=== PATIENT | female | born 1990 | race Caucasian/White ===

== ENCOUNTER 2023-12-06 22:45 | Emergency (ER) | payer OTHER, SELFPAY ==
[2023-12-06 22:46] VITALS: BP 140/84
[2023-12-06 23:19] LABS: HCG, Serum Qualitative Screen Negative; Lactic Acid 0.7 mmol/L (0.7-2.0)
[2023-12-06 23:25] LABS: ALT (SGPT) 24 U/L (0-35); AST (SGOT) 34 U/L (14-36); Albumin 4.2 g/dl (3.5-5.0); Alkaline Phosphatase 44 U/L (38-126); Blood Urea Nitrogen 14 mg/dl (7-17); Carbon Dioxide 23 mmol/L (22-30); Chloride 104 mmol/L (98-107); Glucose 115 mg/dl (70-99); Lipase 48 U/L (23-300); Potassium 4.5 mmol/L (3.5-5.1); Sodium 136 mmol/L (135-145); Total Bilirubin 0.5 mg/dl (0.2-1.3); eGFR > 60.00
[2023-12-07 02:28] VITALS: BMI 33.3
[2023-12-07 02:32] VITALS: BP 94/81
[2023-12-07 02:57] LABS: Urine Albumin Negative (Neg - Trace); Urine Bilirubin Negative (Negative); Urine Character Clear (Clear); Urine Color Yellow; Urine Glucose Negative (Negative); Urine Ketone Negative (Negative); Urine Leukocyte Trace (Negative); Urine Nitrite Negative (Negative); Urine Occult Blood Negative (Negative); Urine Urobilinogen Negative (Neg - 1+)
[2023-12-07 03:00] VITALS: BP 116/71
[2023-12-07 03:02] LABS: COVID-19 Antigen Positive (Negative)
[2023-12-07 03:03] LABS: % Basophils 0.3 % (0-2); % Eosinophils 0.7 % (0-6); % Immature Granulocytes 0.3 % (0-0.5); % Lymphocytes 14.3 % (20.5-51.1); % Monocytes 10.3 % (1.7-9.3); % Neutrophils 74.1 % (42.2-75.2); Absolute Eosinophils 0.1 10^3/uL (0-0.7); Absolute Lymphocytes 1.1 10^3/uL (1.2-3.4); Absolute Monocytes 0.8 10^3/uL (0.1-0.6); Absolute Neutrophils 5.6 10^3/uL (1.4-6.5); Hematocrit 33.4 % (37.0-47.0); Hemoglobin 11.7 g/dL (12.0-16.0); Mean Corpuscular Hgb 29.3 pg (27.0-31.0); Mean Corpuscular Volume 83.5 fL (81.0-99.0); Mean Platelet Volume 9.6 fL (7.4-10.4); Nucleated Red Blood Cells % 0 %; Platelet Count 214 10^3/uL (130-400); Red Cell Dist. Width 12.9 % (11.5-14.5); White Blood Cell Count 7.5 10^3/uL (4.8-10.8)
--- NOTE | 2023-12-07 03:14 | ED.GENMED ---
History of Present Illness
<Terri (Leah SAMM Matias - Last Filed: 12/07/23 04:58>
General
Chief Complaint: Abdominal Pain
Source: patient and family
Exam Limitations: none
Time Seen by Provider: 12/07/23 02:35
Nursing documentation reviewed up to this point in time: agreed with
History of Present Illness
History of Present Illness:
Pt is a 33 yo female with PMHx of long COVID and gallstones who presents to the ED with concerns over new onset fever, BHATT, and worsening RUQ pain x 1d. She presents complaining of RUQ pain 'over my gallbladder', endorses nausea, no vomiting. Last
night (Monday 12/04) she started with a fever, Tmax 101F, no relief with cold pack. Tonight (12/05) she took 4 baby aspirin and 2 benadryl at 1800 with no relief of symptoms. She states she now feels flushed, sweaty, and full body and joint aches. She
is concerned she has long COVID. Pt had COVID December 2022 with sx lasting 1 month. Reports daily exhaustion. Denies difficulty swallowing, difficulty breathing, shortness of breath, chest pain, changes to bowel or bladder habits. She does note
that is frequently constipated, but last BM yesterday was soft and normal.
Pt states that on an abdominal U/S done 11/17/23, there were gallstones noted (2.4 x 2.0 x 3.0 cm) and CBD measuring 5.0 mm.
Pt states that since April 2023 she has had a multitude of complaints: body aches, intermittent extremity numbness, dizziness, 'heart pain', weight loss, neck and head pressure, 'full body pounding', myalgias, periodic 'raised red, not itchy' rash
on her extremities. She has been seen by her PCP multiple times since and told she has allergies. Blood work workup from 11/17/23 shows no abnormalities (including TSH, free T4, CRP, CBC, CMP).
Recently had 3 dental abscesses treated by the dentist about 1.5 weeks ago, was placed on 1 week of amoxicillin on 11/23/23. 'I felt better with the antibiotics'.
Past History
<SAMM Knox (Lenka) - Last Filed: 12/07/23 04:58>
Past History
ED Past Medical History: Other (gallstones)
Phy Exam
<SAMM Knox (Lenka) - Last Filed: 12/07/23 04:58>
General Physical Exam
General Presentation: mild distress (pt laying in bed, flushed, clammy, grimacing )
General age: appears stated age
General Skin: feels hot and flushed
General Habitus: normal
General Mental: alert
General Hydration: appears well hydrated
ENT Exam
ENT Exam: EOMI, TM's normal, pharynx normal, normocephalic and swallowing well
Eye Exam
Eye Exam: PERRL, EOMI and conjunctiva normal
Cardiovascular Exam
Cardiovascular Exam: regular rate/rhythm, no edema and normal peripheral pulses
Heart Sounds: normal
Pulmonary Exam
Pulmonary Exam: lungs clear, no respiratory distress, no rales, no rhonchi, no wheezing and no cough
Gastrointestinal Exam
Gastrointestinal Exam: normal bowel sounds, soft and non distended
Palpation: left upper quadrant: No tenderness, left lower quadrant: No tenderness, right upper quadrant: Minimal tenderness (minimal tenderness to R side with palpation, negative Pike sign) and right lower quadrant: Minimal tenderness (minimal
tenderness to R side with palpation, negative Pike sign)
Neurological Exam
Neurological Exam: alert, oriented x3 and speech normal
Musculoskeletal Exam
Musculoskeletal Exam: neck pain (circumferential)
Course
<SAMM Knox (Lenka) - Last Filed: 12/07/23 04:58>
Orders/Labs/Results
Orders:
Orders
12/06/23 22:51
Complete Blood Count/With Diff Urgent
Test Result ONCE
12/06/23 23:01
Comprehensive Metabolic Panel Urgent
HCG, Serum Qualitative Screen Urgent
Lactate Level [Lactic Acid] Urgent
Lipase Urgent
12/07/23 02:47
COVID-19 Antigen Urgent
Source: Nasal Swab
Urinalysis Reflex To Culture Urgent
Date Specimen was Collected: 12/07/23
Time Specimen was Collected: 02:24
Urine Microscopic Reflex Cult Urgent
12/07/23 03:16
Acetaminophen [Tylenol] 650 mg PO NOW STA
12/07/23 03:23
0.9% Sodium Chloride 1000 ml [Nss] 1,000 ml IV BOLUS
12/07/23 03:37
US Abdomen Complete/Upper Urgent
Comment:
Reason For Exam: worsening RUQ pain, hx gallstones
12/07/23 05:26
Dexamethasone Pf [Decadron] 10 mg PO NOW STA
Abnormal Lab Results
12/06/23 12/07/23
23:01 02:47
RBC 4.00 L 10^6/uL
(4.20-5.40)
Hgb 11.7 L g/dL
(12.0-16.0)
Hct 33.4 L %
(37.0-47.0)
Absolute Lymphs (auto) 1.1 L 10^3/uL
(1.2-3.4)
Absolute Monos (auto) 0.8 H 10^3/uL
(0.1-0.6)
Lymphocytes % 14.3 L %
(20.5-51.1)
Monocytes % 10.3 H %
(1.7-9.3)
Glucose 115 H mg/dl
(70-99)
Leukocyte Esterase Rfl Trace A
(Negative)
Urine Bacteria (Reflex) Few A
(Negative)
SARS-CoV-2 Antigen Positive A
(Negative)
12/07/23 02:47
12/06/23 23:01
Vital Signs
Initial and Last Documented VS:
Initial Vital Signs
Temp Pulse Resp BP Pulse Ox
100.2 F 114 24 140/84 96
12/06/23 22:46 12/06/23 22:46 12/06/23 22:46 12/06/23 22:46 12/06/23 22:46
Last Documented Vital Signs
Temp Pulse Resp BP Pulse Ox
99.6 F 97 18 116/71 97
12/07/23 02:26 12/07/23 02:32 12/07/23 02:32 12/07/23 03:00 12/07/23 04:20
<Jay Noguera, DO - Last Filed: 12/07/23 05:33>
Orders/Labs/Results
Orders:
Orders
12/06/23 22:51
Complete Blood Count/With Diff Urgent
Test Result ONCE
12/06/23 23:01
Comprehensive Metabolic Panel Urgent
HCG, Serum Qualitative Screen Urgent
Lactate Level [Lactic Acid] Urgent
Lipase Urgent
12/07/23 02:47
COVID-19 Antigen Urgent
Source: Nasal Swab
Urinalysis Reflex To Culture Urgent
Date Specimen was Collected: 12/07/23
Time Specimen was Collected: 02:24
Urine Microscopic Reflex Cult Urgent
12/07/23 03:16
Acetaminophen [Tylenol] 650 mg PO NOW STA
12/07/23 03:23
0.9% Sodium Chloride 1000 ml [Nss] 1,000 ml IV BOLUS
12/07/23 03:37
US Abdomen Complete/Upper Urgent
Comment:
Reason For Exam: worsening RUQ pain, hx gallstones
12/07/23 05:26
Dexamethasone Pf [Decadron] 10 mg PO NOW STA
Abnormal Lab Results
12/06/23 12/07/23
23:01 02:47
RBC 4.00 L 10^6/uL
(4.20-5.40)
Hgb 11.7 L g/dL
(12.0-16.0)
Hct 33.4 L %
(37.0-47.0)
Absolute Lymphs (auto) 1.1 L 10^3/uL
(1.2-3.4)
Absolute Monos (auto) 0.8 H 10^3/uL
(0.1-0.6)
Lymphocytes % 14.3 L %
(20.5-51.1)
Monocytes % 10.3 H %
(1.7-9.3)
Glucose 115 H mg/dl
(70-99)
Leukocyte Esterase Rfl Trace A
(Negative)
Urine Bacteria (Reflex) Few A
(Negative)
SARS-CoV-2 Antigen Positive A
(Negative)
12/07/23 02:47
12/06/23 23:01
Vital Signs
Initial and Last Documented VS:
Initial Vital Signs
Temp Pulse Resp BP Pulse Ox
100.2 F 114 24 140/84 96
12/06/23 22:46 12/06/23 22:46 12/06/23 22:46 12/06/23 22:46 12/06/23 22:46
Last Documented Vital Signs
Temp Pulse Resp BP Pulse Ox
99.6 F 97 18 116/71 97
12/07/23 02:26 12/07/23 02:32 12/07/23 02:32 12/07/23 03:00 12/07/23 04:20
<SAMM Knox (Lenka) - Last Filed: 12/07/23 04:58>
MDM/Problems Addressed
Differential Diagnosis Includes:
DDx: COVID vs viral infection vs
Will test for COVID, check CBC, CMP, UA.
<SAMM Knox (Lenka) - Last Filed: 12/07/23 04:58>
*Critical Care Note
Total Time (30-74mins, 75-104mins- exclusive of procedures): Not Applicable
<Terri Hackett) SAMM Matias - Last Filed: 12/07/23 04:58>
Update Note
Update Note:
COVID POSITIVE
US abdomen, RUQ
IMPRESSION:
- normal hepatic parenchyma, without focal liver mass where seen. Mild hepatomegaly. Smooth capsular contours. Hepatopetal portal venous flow.
- the gallbladder is contracted around a single shadowing gallstone. Accounting for degree of contraction, no evidence of mural inflammation or edema. While evaluation for sonographic Chacon's sign is confounded by patient's inability to take deep
breaths, acute cholecystitis is highly unlikely in the setting of contracted gallbladder
- no significant intrahepatic or extrahepatic biliary ductal dilation. CBD is poorly resolved but measures approximately 5mm
- pancreas obscured by bowel gas
- normal kidneys, measuring 9.5cm on the right and 10.3cm on the left, without hydronephrosis
- borderline splenomegaly, 13.4 cm
ED Attending Note
<SAMM Knox (Lenka) - Last Filed: 12/07/23 04:58>
-
Portions of this chart may have been created with voice recognition software.� Occasional wrong word or��sound alike� substitutions may have occurred due to the inherent limitations of voice recognition software.
<Jay Noguera DO - Last Filed: 12/07/23 05:33>
ED Attending Note
Patient seen and examined by attending physician: Yes
I performed the substantive portion of visit, reviewed & personally made and approve the management plan that is documented in note by myself or KP.: Yes
ED Attending Note:
33-year-old female with fever that is been going on since her first episode of COVID in April. She has had a headache and bodyaches. She has known gallstones and had some nausea. She came to the ER tonight with new onset fever and right upper
quadrant pain that was worsening. Patient was seen in conjunction with the PA student. I have reviewed and agree with the history and treatment plan presented. On my independent physical exam, patient is awake, alert, and oriented x3, minimal
acute distress after fluids. Heart is regular rate rhythm. Lungs are clear to auscultation bilaterally no wheezes rales or rhonchi. Abdomen is soft and nontender. Negative McBurney's point tenderness. Negative Chacon sign.
Patient requesting 'referral 'to the [facility] COVID clinic. I did make a recommendation that she follow-up there but as I explained to her referrals are not submitted typically can do. She did request steroids which I gave
her. She requested a note for work.
Discharge Plan
Departure
Disposition: Home (Routine Discharge)
Date of Disposition: 12/07/23
Time of Disposition: 05:31
Patient with high blood pressure during this ER visit?: No
Condition: Good
Discharge Problem:
Abdominal pain, Biliary colic, COVID-19
Instructions: Gallstones (DC), COVID-19 ED, Abdominal Pain
Prescriptions:
New
ondansetron 4 mg tablet,disintegrating
4 mg PO DAILY PRN (Reason: nausea and vomiting) Qty: 10 0RF
No Action
clonazepam [Klonopin] 1 mg Tablet
1 mg PO QID
trazodone 100 mg Tablet
100 mg PO HS
methadone 5 mg/5 mL Solution
64 mg PO DAILY
tizanidine
PO HS
Referrals:
Herbie Frey MD [Active] - As needed
Forms: Return to Work
Additional Instructions:
Your prescriptions were sent electronically to the pharmacy that you specified.
Please follow-up with the [facility] clinic at [facility]
It was a pleasure meeting you and taking part in your care. We hope for your continued healing and wellness.
Please read discharge instructions in their entirety. However, they are for general education and may not describe your exact diagnosis at discharge. Information on your ER visit and medical conditions were discussed with you along with appropriate
follow up information...
If indicated, please take your medications as instructed and indicated on discharge paperwork.
Please schedule a follow up appointment as directed. Call to schedule an appointment
Please return to the emergency department with ANY change in, persisting, or worsening of symptoms. If any of your symptoms do not improve, or persist, or become more severe within 6-12 hours, please return to the emergency department for further
care.
Please return to the emergency department if you develop a headache, neck pain/stiffness, fever greater than 100.4F, chest pain, shortness of breath, persistent nausea, vomiting, slurred speech, difficulty walking, numbness/tingling, weakness, signs
of infection or any other symptoms that are worrisome to you.
If you have any questions or concerns please do not hesitate to call the Hospital at or E-mail me directly at [email or web address]
Interventions
Interventions:
*Risk Screen - Suicide Last Done: 12/06/23 22:46
*General Assessment Last Done: 12/07/23 03:55
*Neglect/Abuse Screening Last Done: 12/06/23 22:46
ED- Fall Risk Assessment Last Done: 12/07/23 03:27
ND-Qevgsp-Wkqofaxjir Assessment Last Done: 12/07/23 03:27
ED- Neurological Assessment Last Done: 12/07/23 03:27
Discharge Date and Time
Print Language: FRENCH
[2023-12-07] MEDS: TYLENOL 650 MG PO (03:22)
[2023-12-07] MEDS: NSS 1000 IV (03:24)
[2023-12-07 03:36] LABS: Urine Bacteria Few (Negative); Urine Red Blood Cell 0-2 /HPF (0-2); Urine White Cell 0-2 /HPF (0-5)
[2023-12-07] MEDS: DECADRON 10 MG PO (05:54)
== END 2023-12-07 06:00 | disposition home or self-care (01) ==
LOC: EMR 22:45
PROVIDERS: EMERGENCY PHYSICIAN Student in an Organized Health Care Education/Training Program; FAMILY PHYSICIAN Family Medicine
DX: U07.1 COVID-19 (principal); R10.9 Unspecified abdominal pain; K80.70 Calculus of gallbladder and bile duct without cholecystitis without obstruction
CPT/HCPCS: 99284; 96360; 96361 ×2; 76700; 80053; 81003; 81015; 83605; 83690; 84703; 85025; 87811